=== PATIENT | female | born 1950 | race Caucasian/White ===

== ENCOUNTER 2017-02-01 10:20 | Day surgery (SDC) | payer MEDICARE, BC ==
[~2017-02-01] VITALS: Ht 167.6 cm; Wt 104.0 kg
--- NOTE | 2017-02-02 08:05 | OR ---
ADMIT: 02/01/2017 RM/LOC: [facility] MR#: [id number] [address] [id number] JUAN RESENDIZ [address] [place] [address] Operative/Delivery Room Report SEX: F AGE: 66 : 1950 SURGERY DATE: 02/01/2017 SURGEON: Edwina Butler MD PREPROCEDURAL DIAGNOSES: 1. Lumbar spondylosis. 2. Lumbago. POSTPROCEDURAL DIAGNOSES: 1. Lumbar spondylosis. 2. Lumbago. PROCEDURE PERFORMED: Right-sided lumbar facet injections at L3-L4, L4-L5, and L5-S1 levels. INDICATIONS FOR PROCEDURE: The patient is a pleasant female with history of chronic right-sided lower back secondary to above-mentioned diagnoses, comes here for planned right-sided lumbar facet injection. ANESTHESIA: Local without sedation. ESTIMATED BLOOD LOSS: Zero. COMPLICATIONS: None immediately evident. DESCRIPTION OF PROCEDURE: After the patient was seen in the preoperative area, vitals signs were taken. Prior to the procedure, the risks, benefits, and alternative therapies were discussed at length. Patient consent was obtained and updated. The patient was taken to the fluoroscopy suite and placed on the fluoroscopy table in the prone position. Pressure points were padded to comfort, monitors applied, and a timeout performed. The lumbosacral area was prepped sterilely using ChloraPrep. C-arm fluoroscopy was then brought in to identify facet joints at L3-L4, L4-L5, and L5-S1 on the right side. Lidocaine 1% plain approximately 1 mL was used to anesthetize the skin and underlying subcutaneous tissue at each level. At each level, a 3.5- inch 22-gauge spinal needle was used. The needle was then advanced to make contact with the superior articular facet at each level. The needle was then ADMIT: 02/01/2017 RM/LOC: [facility] MR#: [id number] [id number] [place], [place] [address] JUAN RESENDIZ [address] [place] [address] Operative/Delivery Room Report SEX: F AGE: 66 : 1950 walked off and placed into a joint at each level. Isovue-300 0.5 mL was instilled at each level, which showed excellent intra-articular spread. The patient did receive 0.5 mL of 0.25% Marcaine with approximately 80 mg of Depo- Medrol. The patient had reproduction of her typical pain at each level. The patient tolerated the procedure well. The patient was brought to PACU where she recovered nicely without any complications. PLAN: The patient was examined after 20 minutes and had 80% reduction of pain. Range of motion, mainly extension, from 10 degree to 25 degree of extension. Discharge instructions were given, followup scheduled. The patient was discharged home with a buggy driver. Edwina Butler MD/ skyler JOB #: [id number] CC: Edwina Butler, Attending Physician Colton Steele, Family Physician
== END 2017-02-01 11:40 | disposition home or self-care (01) ==
LOC: SSS 10:20
PROC: 3E0U33Z Introduction of Anti-inflammatory into Joints, Percutaneous Approach (ICD-10-PCS; principal; 2017-02-01)
PROC: BR16YZZ Fluoroscopy of Lumbar Facet Joint(s) using Other Contrast (ICD-10-PCS; principal; 2017-02-01)
PROC: 3E0U3BZ Introduction of Anesthetic Agent into Joints, Percutaneous Approach (ICD-10-PCS; principal; 2017-02-01)
DX: G89.29 Other chronic pain (principal); M47.27 Other spondylosis with radiculopathy, lumbosacral region